=== PATIENT | male | born 1995 | race Caucasian/White ===

== ENCOUNTER 2021-10-10 13:17 | Emergency (ER) | payer BC ==
[~2021-10-10 13:17] MED LIST: BACTRIM DS TAB1 EACH PO
[2021-10-10 14:06] LABS: HEMOGLOBIN 16.3 gm/dl (14.0-17.5); RED BLOOD COUNT 5.32 M/UL (4.20-5.50); WHITE BLOOD COUNT 7.3 K/UL (4.5-11.0)
[2021-10-10 14:26] LABS: BUN/CREATININE RATIO 12 (0-10)
== END 2021-10-10 19:15 | disposition home or self-care (01) ==
LOC: ER1 13:17
DX: N20.1 Calculus of ureter (principal)
CPT/HCPCS: 80053; 81001; 82550; 82553; 85025; 99284